=== PATIENT | female | born 1990 | race African-American/Black ===

== ENCOUNTER 2018-11-29 19:04 | Emergency (ER) | payer OTHER ==
[~2018-11-29] VITALS: Ht 167.6 cm; Wt 108.0 kg
--- NOTE | 2018-11-29 19:23 | NUR ---
ED Nurse Note: PT walked in c/o right big toe pain, pt states when she was walking with boots it started hurting and went to nail salon to see if it was ingroin nail but still had pain after nail removal. Noted tenderness on right big toe with redness, no drainage nor pus noted, will cont monitor.
--- NOTE | 2018-11-29 20:13 | Emergency Room Report ---
History of Present Illness General Chief Complaint: Lower Extremity Injury Source: Patient Present Illness HPI 28-year-old female presents to the emergency department complaining of 10 out of 10 in severity localized pain to the nail of the right great toe which has been progressive over the course of one week. Patient reports initially she had acrylic nails on and began to have a tender/burning sensation under the right great toe after working a long shift when steel toe boots. Patient was concerned that maybe she had bleeding under the toenail so she went to nail salon and had acrylic removed at that time one of the nail salon workers suggested that the patient may have an infection/ingrown toenail so she trimmed down the side of the nail. Patient states that her symptoms progressed and the pain became more frequent with some swelling she returned back to the nail salon yesterday and the nail check trimmed the toenail down to approximately 50 % since states that her toe is now even more tender she denies ever noticing bruising she denies discharge she denies history of gout, fevers or chills. Patient denies appreciable trauma or fall. Allergies: Coded Allergies: PENICILLINS (Verified Allergy, Severe, Rash, 11/29/18) Patient History Past Medical History: see triage record Past Surgical History: none Pertinent Family History: none Last Menstrual Period: november Now: No Reviewed Nursing Documentation: PMH: Agreed; PSxH: Agreed Nursing Documentation-PMH Past Medical History: No Stated History Review of Systems All Other Systems: negative except mentioned in HPI Physical Exam Vital Signs Date Time Temp Pulse Resp B/P (MAP) Pulse Ox O2 Delivery O2 Flow Rate FiO2 11/29/18 19:09 98.6 80 18 120/76 98 Room Air Sp02 EP Interpretation: reviewed, normal General Appearance: alert, GCS 15, non-toxic, mild distress Head: normocephalic, atraumatic Eyes: bilateral eye normal inspection, bilateral eye PERRL ENT: hearing grossly normal, normal voice Neck: full range of motion Respiratory: lungs clear, normal breath sounds, speaking full sentences Cardiovascular #1: regular rate, rhythm, normal capillary refill Musculoskeletal: back normal, gait/station normal, normal range of motion, tender - TTP to the nail and exposed nailbed of the right great toe. nail has been cut down to approximately 50%, TTP to the left lateral cuticle line, swelling noted, no purulent d/c noted, nail is thickened and opaque with notable fungal infection. no joint involement, no tenderness other than directly on the toenail. Neurologic: alert, oriented x3, responsive, motor strength/tone normal, sensory intact, speech normal, grossly normal Psychiatric: judgement/insight normal Skin: normal color, no rash, warm/dry, well hydrated, other - TTP to the nail and exposed nailbed of the right great toe. nail has been cut down to approximately 50%, TTP to the left lateral cuticle line, swelling noted, no purulent d/c noted, nail is thickened and opaque with notable fungal infection. no joint involement, no tenderness other than directly on the toenail. Nail is tender to percussion Lymphatic: no adenopathy Medical Decision Making PA Attestation Dr. Roque is my supervising Physician whom patient management has been discussed with. Diagnostic Impression: Primary Impression: Onychomycosis of right great toe Additional Impressions: Pain due to onychomycosis of toenail of right foot Paronychia of great toe, right ER Course 28-year-old female presents to the emergency department complaining of 10 out of 10 in severity localized pain to the nail of the right great toe which has been progressive over the course of one week. Patient reports initially she had acrylic nails on and began to have a tender/burning sensation under the right great toe after working a long shift when steel toe boots. Patient was concerned that maybe she had bleeding under the toenail so she went to nail salon and had acrylic removed at that time one of the nail salon workers suggested that the patient may have an infection/ingrown toenail so she trimmed down the side of the nail. Patient states that her symptoms progressed and the pain became more frequent with some swelling she returned back to the nail salon yesterday and the nail check trimmed the toenail down to approximately 50 % since states that her toe is now even more tender she denies ever noticing bruising she denies discharge she denies history of gout, fevers or chills. Patient denies appreciable trauma or fall. Ddx considered but are not limited to cellulitis, paronychia, eponychia, ingrown toe nail, fracture, d/L, gout Vital signs: are WNL, pt. is afebrile H&PE are most consistent with right great toe paronychia and chronic fungal infection of the nail--Nail is tender to percussion ORDERS: none required at this time, the diagnosis is clinical ED INTERVENTIONS: - no palpable fluctuance or visible purulent d/c to warrant I & D. Nail is tender to percussion - will d/c pt. with PO abx. -I do not identify an emergent condition at this time. With current presentation , pt. is stable for close outpatient follow up and conservative treatment. D/ w pt. to return promptly to ED with worsening or new symptoms.- Pt. verbalizes' understanding and agreement with proposed treatment plan.proposed treatment plan. DISCHARGE: At this time pt. is stable for d/c to home. Will provide printed patient care instructions, and any necessary prescriptions. Care plan and follow up instructions have been discussed with the patient prior to discharge. Last Vital Signs Date Time Temp Pulse Resp B/P (MAP) Pulse Ox O2 Delivery O2 Flow Rate FiO2 11/29/18 19:09 98.6 80 18 120/76 98 Room Air Disposition: HOME, SELF-CARE Condition: Stable Scripts Ibuprofen* (MOTRIN*) 600 Mg Tablet 600 MG ORAL THREE TIMES A DAY, #30 TAB 0 Refills Prov: Flower Griffith 11/29/18 Acetaminophen With Codeine (T#3) (TYLENOL #3 TAB*) Y Tab 1 TAB ORAL Q6H PRN for For Pain, #9 TAB Prov: Flower Griffith 11/29/18 Clindamycin Hcl (CLINDAMYCIN HCL) 300 Mg Capsule 300 MG ORAL FOUR TIMES A DAY for 5 Days, #20 CAP Prov: Flower Griffith 11/29/18 Ciclopirox (PENLAC) 6.6 Ml Solution 1 APPLIC TP DAILY, #6.6 ML Prov: Flower Griffith 11/29/18 Departure Forms: Return to Work Return to Work Date: Dec 03, 2018 Work Restrictions: None Other Restrictions: May return Sooner if Symptoms have resolved. Return to Full Activity: Dec 03, 2018 Patient Instructions: Paronychia, [id number] Additional Instructions: Take medications as directed. Follow up with a Primary Care Provider in 3-5 days, even if your symptoms have resolved. [facility] REFERRAL --Please review list of primary care clinics, if you do not already have a primary care provider Return sooner to ED if new symptoms occur, or current symptoms become worse. Do not drink alcohol, drive, or operate heavy machinery while taking Tylenol # 3 as this may cause drowsiness. - Please note that this Emergency Department Report was dictated using [employer] technology software, occasionally this can lead to erroneous entry secondary to interpretation by the dictation equipment. Flower Griffith Nov 29, 2018 20:13
[2018-11-29] MEDS ORDERED: CLINDAMYCIN HC300 MG ORAL (20:16)
[2018-11-29] MEDS ORDERED: ACETAMINOPHEN-1 EAC1 ORAL (20:16)
[2018-11-29] MEDS ORDERED: PENLAC6.6 M1 TP (20:16)
[2018-11-29] MEDS ORDERED: IBUPROFEN600 MG ORAL (20:16)
--- NOTE | 2018-11-29 20:28 | NUR ---
ED Nurse Note: pt cleared to be d/c per ER provider, pt d/c and aftercare instruction provided w/ prescription, pt education done via discussion and handout, pt advised to follow up with pcp or return to ed if sx worsen or new sx develop, pt verbalized understanding and agrees with plan, vss, resp even and unlabored on RA, ambulatory w/ steady gait, left w/ all belongings. wristband removed.
[2018-11-29 20:29] VITALS: BP 119/67
== END 2018-11-29 20:30 | disposition home or self-care (01) ==
LOC: EMR 19:46
DX: B35.1 Tinea unguium (principal); L03.031 Cellulitis of right toe; Z88.0 Allergy status to penicillin
CPT/HCPCS: 99282